=== PATIENT | male | born 1995 | race Caucasian/White ===

== ENCOUNTER 2019-03-31 19:28 | Emergency (ER) | payer OTHER ==
[~2019-03-31] VITALS: Ht 185.4 cm; Wt 81.8 kg
[2019-03-31 19:42] VITALS: BP 138/71; TEMP 99
[2019-03-31] MEDS ORDERED: VENTOLIN0.09 MG IH (20:03)
[2019-03-31 21:11] VITALS: PULSE 64
== END 2019-03-31 21:11 | disposition home or self-care (01) ==
LOC: COL.ER 19:28
DX: S01.112A Laceration without foreign body of left eyelid and periocular area, initial encounter (principal); J45.909 Unspecified asthma, uncomplicated; W50.0XXA Accidental hit or strike by another person, initial encounter; Y92.310 Basketball court as the place of occurrence of the external cause